=== PATIENT | male | born 1960 | race Caucasian/White ===

== ENCOUNTER 2022-06-02 03:12 | Observation (INO) ==
[2022-06-02 03:40] LABS: Basophils # 0.1 K/mcL (0.0-0.2); Basophils % 0.5 %; Eosinophils # 0.2 K/mcL (0.0-0.6); Eosinophils % 1.7 %; Hematocrit 34.2 % (37.5-50.1); Hemoglobin 11.8 g/dL (12.9-16.9); Immature Granulocytes % 0.4 % (0-4); Lymphocytes # 1.4 K/mcL (0.6-4.6); Lymphocytes % 12.5 %; Mean Corpuscular HGB Conc 34.5 g/dL (31.6-35.5); Mean Corpuscular Hemoglobin 29.8 pg (28.0-33.3); Mean Corpuscular Volume 86.4 fL (83.0-100.0); Mean Platelet Volume 10.1 fL (9.4-12.4); Monocytes # 0.6 K/mcL (0.0-1.3); Monocytes % 5.8 %; Neutrophils # 8.7 K/mcL (1.6-8.9); Platelet Count 229 K/mcL (140-400); Red Blood Count 3.96 M/mcL (4.19-5.50); Red Cell Distribution Width 14.4 % (11.5-14.5); Segmented Neutrophils % 79.1 %
[2022-06-02 03:48] LABS: INR 1.1; Prothrombin Time 12.2 Seconds (9.4-12.1)
[2022-06-02 03:50] LABS: Activated Partial Thrombo Time 34.6 Seconds (26.0-36.0)
[2022-06-02 04:01] LABS: Troponin I 0.03 ng/mL (< 0.04)
[2022-06-02] MEDS ORDERED: Furosemide 40 MG/4 ML VIAL IVP ONE (04:22)
[2022-06-02 04:27] LABS: Albumin/Globulin Ratio 1.5 (1.1-2.2); Bilirubin,Direct 0.3 mg/dL (0.0-0.2); Bilirubin,Indirect 1.7 mg/dL (0.0-1.0); Calcium 8.6 mg/dL (8.6-10.3); Globulin 2.7 g/dL (2.4-3.5); Potassium 3.7 mEq/L (3.5-5.1); Total Protein 6.7 g/dL (6.4-8.9)
[2022-06-02 05:25] LABS: Bilirubin,Urine Negative (Negative); Blood,Urine Negative (Negative); Clarity,Urine Clear (Clear); Color,Urine Yellow (Yellow); Glucose,Urine (UA) Normal (Normal); Ketones,Urine Negative (Negative); Leukocyte Esterase,Urine Negative (Negative); Nitrite,Urine Negative (Negative); PH,Urine 6.5 pH Units (5.0-8.0); Protein,Urine 30 mg/dL (Neg-Trace); Specific Gravity,Urine 1.015 (1.010-1.025); Urobilinogen,Urine Normal (Normal)
[2022-06-02] MEDS ORDERED: Melatonin 3 MG TABLET PO PRN (09:10)
[2022-06-02] MEDS ORDERED: Acetaminophen 325 MG TABLET PO PRN (09:10)
[2022-06-02] MEDS ORDERED: Ondansetron 4 MG/2 ML VIAL IVP PRN (09:10)
[2022-06-02] MEDS ORDERED: Naloxone 0.4 MG/ML INJ IVP PRN (09:10)
[2022-06-02] MEDS ORDERED: Gabapentin 400 MG CAPSULE PO PRN (09:12)
[2022-06-02] MEDS ORDERED: *HR* OxyCODONE/APAP 7.5/325 TABLET PO PRN (09:12)
[2022-06-02] MEDS: carvediloL 25 MG TABLET PO SCH ×2 (10:18→17:04)
[2022-06-02] MEDS: Aspirin Enteric Coated 81 MG Tablet PO SCH (10:18)
[2022-06-02] MEDS: hydrALAZINE 25 MG TABLET PO SCH ×3 (10:18→20:25)
[2022-06-02] MEDS: Furosemide 40 MG/4 ML VIAL IVP SCH (17:04)
[2022-06-02] MEDS: amLODIPine 5 MG TABLET PO SCH (18:14)
[2022-06-02] MEDS: Sacubitril/Valsartan 24/26 MG 1 TABLET PO SCH (20:25)
[2022-06-03] MEDS: *HR* Enoxaparin 40 MG/0.4 ML SYRINGE SQ SCH ×2 (06:46→09:03)
[2022-06-03 07:15] LABS: Hematocrit 36.2 % (37.5-50.1); Hemoglobin 12.6 g/dL (12.9-16.9); Mean Corpuscular HGB Conc 34.8 g/dL (31.6-35.5); Mean Corpuscular Volume 86.2 fL (83.0-100.0); Platelet Count 239 K/mcL (140-400); Red Cell Distribution Width 14.3 % (11.5-14.5); White Blood Count 7.1 K/mcL (4.3-11.1)
[2022-06-03 07:36] VITALS: RESP 17; TEMP 97.9
[2022-06-03 08:09] LABS: Calcium 8.8 mg/dL (8.6-10.3); Potassium 3.3 mEq/L (3.5-5.1)
[2022-06-03 08:59] VITALS: BP 169/83; PULSE 69; O2SAT 95
[2022-06-03] MEDS: Sacubitril/Valsartan 24/26 MG 1 TABLET PO SCH (09:02)
[2022-06-03] MEDS: hydrALAZINE 25 MG TABLET PO SCH (09:03)
[2022-06-03] MEDS: Aspirin Enteric Coated 81 MG Tablet PO SCH (09:03)
[2022-06-03] MEDS: amLODIPine 5 MG TABLET PO SCH (09:03)
[2022-06-03] MEDS: carvediloL 25 MG TABLET PO SCH (09:03)
[2022-06-03] MEDS: Furosemide 40 MG/4 ML VIAL IVP SCH (09:08)
== END 2022-06-03 12:50 | disposition left against medical advice (07) ==
LOC: EMEROOPIK 03:12 → INPPIK 03:12
PROVIDERS: ADMIT Registered Nurse Emergency; ATTEND Registered Nurse Emergency